=== PATIENT | female | born 1945 | race African-American/Black ===

== ENCOUNTER 2020-05-14 13:13 | Emergency (ER) | payer MEDICARE ==
--- NOTE | 2020-05-14 14:24 | RADIOLOGY REPORT (SQ) ---
EXAM DESCRIPTION: CHEST SINGLE VIEW IMAGES COMPLETED DATE/TIME: 05/14/2020 12:58 pm REASON FOR STUDY: bed 3 sepsis protocol COMPARISON: None. EXAM PARAMETERS: NUMBER OF VIEWS: One view. TECHNIQUE: Single frontal radiographic view of the chest acquired. RADIATION DOSE: NA LIMITATIONS: None. FINDINGS: LUNGS AND PLEURA: Patchy consolidation in the right mid to lower lung. Probable small mack ateral pleural effusions. MEDIASTINUM AND HILAR STRUCTURES: No masses. Contour normal. HEART AND VASCULAR STRUCTURES: Moderate cardiomegaly. Indistinctness of the pulmonary vasculature. BONES: No acute findings. HARDWARE: None in the chest. OTHER: No other significant finding. IMPRESSION: Focal consolidation right mid to lower lung suspicious for pneumonia. Moderate cardiome carmelita of with possible mild pulmonary edema. TECHNICAL DOCUMENTATION: JOB ID: [id number] [employer]- All Rights Reserved Reading location - IP/workstation name: [email or web address]
[2020-05-14 14:57] LABS: ABSOLUTE BASOPHILS # (AUTO) 0.1 10^3/uL (0.0-0.2); ABSOLUTE EOSINOPHILS # (AUTO) 0.2 10^3/uL (0.0-0.6); ABSOLUTE LYMPHOCYTES (AUTO) 1.2 10^3/uL (0.5-4.7); ABSOLUTE MONOCYTES (AUTO) 1.1 10^3/uL (0.1-1.4); ABSOLUTE NEUT (AUTO) 11.4 10^3/uL (1.7-8.2); BASOPHILS % (AUTO) 0.7 % (0-2); EOSINOPHILS % (AUTO) 1.5 % (0-6); HEMATOCRIT 41.8 % (36.0-47.0); HEMOGLOBIN 13.7 g/dL (12.0-15.5); LYMPHOCYTES % (AUTO) 8.3 % (13-45); MEAN CORPUSCULAR HEMOGLOBIN 28.9 pg (27.0-33.4); MEAN CORPUSCULAR HGB CONC 32.8 g/dL (32.0-36.0); MEAN CORPUSCULAR VOLUME 88 fl (80-97); MONOCYTES % (AUTO) 7.7 % (3-13); RED BLOOD COUNT 4.75 10^6/uL (3.72-5.28); RED CELL DISTRIBUTION WIDTH 15.6 % (11.5-14.0); SEGMENTED NEUTROPHILS % (AUTO) 81.8 % (42-78); TOTAL CELLS COUNTED % (AUTO) 100 %
[2020-05-14 15:02] LABS: INTERNATIONAL RATION (INR) 1.18; PROTHROMBIN TIME 15.2 SEC (11.4-15.4)
[2020-05-14 15:03] LABS: VENOUS BLOOD BASE EXCESS -0.4 mmol/L; VENOUS BLOOD HCO3 23.5 mmol/L (20-32); VENOUS BLOOD PCO2 36.5 mmHg (35-63); VENOUS BLOOD PH 7.43 (7.30-7.42)
[2020-05-14 15:08] LABS: ALBUMIN 3.1 g/dL (3.5-5.0); ALKALINE PHOSPHATASE 106 U/L (38-126); ANION GAP 5 (5-19); ASPARTATE AMINO TRANSFERASE 25 U/L (14-36); BILIRUBIN,DIRECT 0.4 mg/dL (0.0-0.4); BILIRUBIN,TOTAL 0.8 mg/dL (0.2-1.3); BLOOD UREA NITROGEN 21 mg/dL (7-20); CALCIUM 8.7 mg/dL (8.4-10.2); CARBON DIOXIDE 26 mmol/L (22-30); CHLORIDE 102 mmol/L (98-107); GLUCOSE 327 mg/dL (75-110); POTASSIUM 4.6 mmol/L (3.6-5.0); TOTAL PROTEIN 5.8 g/dL (6.3-8.2)
[2020-05-14 15:13] LABS: PLATELET COUNT 85 10^3/uL (150-450)
[2020-05-14 15:24] LABS: TROPONIN I 0.063 ng/mL
[2020-05-14] MEDS ORDERED: FUROSEMIDE INJ/PF 40 MG/4 ML SDV IV ONE (15:46)
[2020-05-14] MEDS ORDERED: INSULIN REG, HUMAN 100 UNIT/ML 3 ML VIAL (PYX) IV ONE ×2 (15:47→16:06)
[2020-05-14] MEDS ORDERED: ASPIRIN 81 MG TABLET, CHEWABLE PO ONE (15:48)
[2020-05-14 16:26] VITALS: BP 146/96
--- NOTE | 2020-05-14 19:33 | ER Document Report ---
Entered by JOSE C ARIAS SCRIBE 05/14/20 1406 Acting as scribe for:VIKAS KIMBROUGH MD ED General - General Stated Complaint: SHORTNESS OF BREATH Primary Care Provider: FLAKITO SAEED [NO LOCAL MD] - Follow up as needed Mode of Arrival: Medic Information source: Patient Notes: This 75 year old female patient with a history of hypertension, CHF, CAD s/p stent placement presents to the ED today via EMS with complaints of worsening shortness of breath that started last night. Per EMS, she had room air O2 sats of 95%. Patient states that when EMS arrived they told her that her BGL was 495. She denies history of diabetes. Denies any chest pain, blurred/double vision, nausea, vomiting, or diarrhea. Patient notes that she tested positive for COVID x2 weeks ago. - Related Data Allergies/Adverse Reactions: Unable to Assess Allergy (Unverified 05/14/20 14:11) Past Medical History - General Information source: Patient - Social History Smoking Status: Never Smoker Cigarette use (# per day): No Chew tobacco use (# tins/day): No Smoking Education Provided: No Frequency of alcohol use: None Drug Abuse: None Family History: Reviewed & Not Pertinent - Past Medical History Cardiac Medical History: Reports: Hx Congestive Heart Failure, Hx Coronary Ar josh Disease, Hx Hypertension Pulmonary Medical History: Reports: Hx COPD Past Surgical History: Reports: Hx Coronary Stent, Hx Kidney (Renal Surgery) - 1 kidney removed Review of Systems - Review of Systems Constitutional: See HPI, Recent illness EENT: See HPI. denies: Blurred vision, Double vision Cardiovascular: See HPI. denies: Chest pain Respiratory: See HPI, Short of breath Gastrointestinal: See HPI. denies: Diarrhea, Nausea, Vomiting Genitourinary: No symptoms reported Female Genitourinary: No symptoms reported Musculoskeletal: No symptoms reported Skin: No symptoms reported Hematologic/Lymphatic: No symptoms reported Neurological/Psychological: No symptoms reported -: Yes All other systems reviewed and negative Physical Exam - Vital signs Vitals: Pulse Ox 93 05/14/20 13:17 - General General appearance: Alert In distress: None - HEENT Head: Normocephalic, Atraumatic Eyes: Normal Extraocular movements intact: Yes Pupils: PERRL Neck: Normal, Supple - Respiratory Respiratory status: Other - 94% O2 saturation on 2L via nasal cannula Chest status: Nontender Breath sounds: Decreased air movement - Diminished breath sounds in the bases Chest palpation: Normal - Cardiovascular Rhythm: Regular, Tachycardia Heart sounds: Normal auscultation Murmur: No - Abdominal Inspection: Morbidly Obese Distension: No distension Bowel sounds: Normal Tenderness: Nontender - Abdomen soft Organomegaly: No organomegaly - Back Back: Normal, Nontender - Extremities General upper extremity: Normal inspection General lower extremity: Edema - Edema to lower extremities bilaterally - Neurological Neuro grossly intact: Yes Orientation: AAOx4 [place] Coma Scale Eye Opening: Spontaneous [place] Coma Scale Verbal: Oriented [place] Coma Scale Motor: Obeys Commands [place] Coma Scale Total: 15 - Psychological Associated symptoms: Normal affect, Normal mood - Skin Skin Temperature: Warm Skin Moisture: Dry Skin Color: Normal Course - Re-evaluation Re-evalutation: 05/15/20 10:29 This is an addendum note to complete the chart from yesterday patient decided to leave AGAINST MEDICAL ADVICE. Patient insisted that she was not going to be admitted to the hospital for her congestive heart failure elevated glucose of gr eater than 300 on arrival. Patient states she has a doctor in in [place] and was planning to call her doctor in the next day. Patient had discussions with myself, nursing staff, and nurse manager knowledge in the emergency department yesterday and she is competent to make this decision and understands the risk of as well as not doing well and deteriorating in her health if she were to leave. Patient was insistent that she was going to go home and take her medications and call her doctor tomorrow patient was given IV insulin 3 units Humulin R for her blood sugar at that time just prior to discharge of 293. 05/15/20 10:46 Patient stated she refused his all medications that we had planned for her and decided that the only medicine she retake was insulin because her sugar had increased which was a new problem to her and said that was the only thing that she would allow us to give prior to her discharge. - Vital Signs Vital signs: Temp Pulse Resp BP Pulse Ox 97.8 F 24 H 146/96 H 94 05/14/20 14:24 05/14/20 16:01 05/14/20 16:01 05/14/20 16:01 05/15/20 10:31 Vital signs show systolic diastolic hypertension 146/96 and a pulse ox of 94 with a respiratory rate of 24. Patient was afebrile - Laboratory Results Result Diagrams: 05/14/20 14:19 05/14/20 14:19 Laboratory Results Interpreted: 05/14/20 05/14/20 05/14/20 13:26 14:19 14:19 WBC 14.0 H RDW 15.6 H Plt Count 85 L Lymph % (Auto) 8.3 L Absolute Neuts (auto) 11.4 H Seg Neutrophils % 81.8 H VBG pH Sodium 132.6 L BUN 21 H Glucose 327 H POC Glucose 345 H NT-Pro-B Natriuret Pep Total Protein 5.8 L Albumin 3.1 L 05/14/20 05/14/20 05/14/20 14:19 14:19 15:59 WBC RDW Plt Count Lymph % (Auto) Absolute Neuts (auto) Seg Neutrophils % VBG pH 7.43 H Sodium BUN Glucose POC Glucose 293 H NT-Pro-B Natriuret Pep 2030 H Total Protein Albumin 05/15/20 10:32 Leukocytosis of 14,000 blood sugar of 345 BNP was 2030. Patient is in congestive heart failure with a elevated white blood cell count consistent with either inflammation stress or infection. Critical Laboratory Results Reviewed: No Critical Results - Radiology Results Radiology Results Interpreted: 05/15/20 10:33 Chest X-Ray 05/14/20 13:19 IMPRESSION: Focal consolidation right mid to lower lung suspicious for pneumonia. Moderate cardiomegaly of with possible mild pulmonary edema. Chest x-ray shows moderate cardiomegaly and pulmonary edema suspicious pneumonia on the right mid lung due to some focal consolidation. Critical Radiology Results Reviewed: No Critical Results Attending or Supervising Physician who Reviewed Radiology: VIKAS KIMBROUGH - EKG Interpretation by Me Additional EKG results interpreted by me: 05/15/20 10:39 Twelve-lead EKG on May 14 2020 shows atrial fibrillation with a variable ventricular rate between 91 and 138. Normal axis left ventricular hypertrophy noted with secondary repull changes TX interval is variable QRS intervals within normal range borderline QT interval prolongation no evidence for STEMI. Discharge - Discharge Clinical Impression: Chronic atrial fibrillation with rapid ventricular response, Pneumonia involving right lung, Congestive heart failure, Leukocytosis, Hyperglycemia Condition: Serious Disposition: AGAINST MEDICAL ADVICE Referrals: LOCALMD,NO [NO LOCAL MD] - Follow up as needed I personally performed the services described in the documentation, reviewed and edited the documentation which was dictated to the scribe in my presence, and it accurately records my words and actions.
--- NOTE | 2020-05-14 22:26 | EKG REPORT ---
SEVERITY:- ABNORMAL ECG - ATRIAL FIBRILLATION, V-RATE 91-138 LVH WITH SECONDARY REPOLARIZATION ABNORMALITY BORDERLINE PROLONGED QT INTERVAL : Confirmed by: Jean Purvis MD 14-May-2020 22:25:52
--- OUTSIDE RECORDS SUMMARY | 2020-05-17 10:26 | XMS REPORT ---
:1945 [facility] [address] [place] [address] Care Team Providers Name Role Phone Famarid YAZMIN Attending Clinician Unavailable Amanda BENDER Attending Clinician Unavailable Tung BENDER Attending Clinician Unavailable Allergies, Adverse Reactions, Alerts Allergy Allergy Type Status Severity Reaction(s) Onset Inactive Treat ing Comments Name Date Date Clinician BACTRIM Drug allergy Active 06-10 00:00: 00 ZELNORM Drug allergy Active 06-10 00:00: 00 CODEINE Drug allergy Active 06-10 00:00: 00 ADHESIVE Miscellaneous Active TAPE allergy 06-10 00:00: 00 Latex, Allergy to Active Natural substance Rubber Medications Ordered Filled Start Stop Current Ordering Indication Dosage Frequency Signature Comments Components Medication Medication Date Date Medication? Clinician (SIG) Name Name Afluria Qd No Afluria Qd (36 mos (36 mos up)(PF)60 up)(PF)60 mcg (15 mcg mcg (15 x4)/0.5 mL mcg IM syringe x4)/0.5 mL Inject by IM syringe intramuscul Inject by ar route. intramuscu lar route. amlodipine No 1 Q1D amlodipine 10 mg 10 mg tablet Take tablet 1 tablet Take 1 every day tablet by oral every day route. by oral route. atorvastati No 1 Q1D atorvastat n 40 mg in 40 mg tablet Take tablet 1 tablet Take 1 every day tablet by oral every day route. by oral route. betamethaso No betamethas ne one dipropionat dipropiona e 0.05 % te 0.05 % topical topical ointment ointment APPLY A APPLY A THIN LAYER THIN LAYER TO THE TO THE AFFECTED AFFECTED AREA(S) BY AREA(S) BY TOPICAL TOPICAL ROUTE ONCE ROUTE ONCE DAILY DAILY Eliquis 5 No 1 BID Eliquis 5 mg tablet mg tablet Take 1 Take 1 tablet tablet twice a day twice a by oral day by route. oral route. esomeprazol No 1capsul Q1D esomeprazo e magnesium e(s) le 40 mg magnesium capsule,del 40 mg ayed capsule,de release layed TAKE 1 release CAPSULE BY TAKE 1 MOUTH DAILY CAPSULE BY MOUTH DAILY furosemide No 1 Q1D furosemide 20 mg 20 mg tablet Take tablet 1 tablet Take 1 every day tablet by oral every day route. by oral route. gabapentin No 1capsul TID gabapentin 100 mg e(s) 100 mg capsule capsule Take 1 Take 1 capsule 3 capsule 3 times a day times a by oral day by route. oral route. metoprolol No 1 BID metoprolol tartrate 25 tartrate mg tablet 1 25 mg (one) tablet 1 Tablet by (one) mouth two Tablet by times daily mouth two times daily tramadol 50 No 1 Q6H tramadol mg tablet 50 mg take 1 tablet (one) take 1 Tablet by (one) mouth four Tablet by times mouth four daily, as times needed daily, as needed Ventolin No 2puff(s Q4H Ventolin HFA 90 ) HFA 90 mcg/actuati mcg/actuat on aerosol ion inhaler aerosol Inhale 2 inhaler puffs every Inhale 2 4 hours by puffs inhalation every 4 route. hours by inhalation route. celecoxib No celecoxib 100 mg 100 mg capsule capsule TAKE 1 TAKE 1 CAPSULE BY CAPSULE BY MOUTH TWICE MOUTH DAILY TWICE DAILY DOK 100 mg No DOK 100 mg capsule capsule TAKE 1 TAKE 1 CAPSULE BY CAPSULE BY MOUTH TWICE MOUTH DAILY TWICE NEEDED DAILY NEEDED furosemide No furosemide 40 mg 40 mg tablet TAKE tablet ONE TABLET TAKE ONE BY MOUTH TABLET BY EVERY DAY MOUTH FOR 5 DAYS EVERY DAY FOR 5 DAYS Gavilyte-C No Gavilyte-C 240 240 gram-22.72 gram-22.72 gram-6.72 gram-6.72 gram-5.84 gram-5.84 gram oral gram oral solution as solution directed as directed Milk of No Milk of Magnesia Magnesia 400 mg/5 mL 400 mg/5 oral mL oral suspension suspension Take 30 mL Take 30 mL by mouth by mouth daily as daily as needed for needed for Constipatio Constipati n. Shake on. Shake well. well. neomycin No neomycin 500 mg 500 mg tablet Take tablet 2 tablets Take 2 at 2 pm and tablets at 7 pm the 2 pm and 7 day before pm the day surgery. before surgery. ondansetron No ondansetro 4 mg n 4 mg disintegrat disintegra ing tablet ting Take 1 Tab tablet by mouth Take 1 Tab every 6 by mouth hours as every 6 needed for hours as Nausea. needed for Nausea. Pain Relief No Pain (acetaminop Relief hen) 500 mg (acetamino tablet TAKE phen) 500 TWO TABLETS mg tablet BY MOUTH TAKE TWO EVERY 8 TABLETS BY HOURS MOUTH EVERY 8 HOURS Pulmicort No Pulmicort Flexhaler Flexhaler 180 180 mcg/actuati mcg/actuat on breath ion breath activated activated inhale one inhale one PUFF TWICE PUFF TWICE DAILY DAILY Shingrix No Shingrix (PF) 50 (PF) 50 mcg/0.5 mL mcg/0.5 mL intramuscul intramuscu ar lar suspension, suspension kit SHOT , kit SHOT Problems Condition Condition Condition Status Onset Resolution Last Treatin g Comments Name Details Category Date Date Treatment Clinician Date Osteoarthri Osteoarthri Problem Active 2019-04 tis of tis of 04-24 right knee Right Knee 00:00: joint Joint 00 Osteoarthri Osteoarthri Problem Active 2019-04 tis of left tis of Left 04-24 knee joint Knee Joint 00:00: 00 Hypercholes Hypercholes Problem Active 2019-04 terolemia terolemia 04-24 00:00: 00 Morbid Morbid Problem Active 2019-04 obesity Obesity 04-24 00:00: 00 Hypertensiv Hypertensiv Problem Active 2019-04 e disorder e Disorder 04-24 00:00: 00 Heart Heart Problem Active 2019-04 disease Disease 04-24 00:00: 00 Bilateral Bilateral Problem Active 2019-04 knee pain Knee Pain 04-23 00:00: 00 Procedures Procedure Date / Time Performed Performing Clinician Devic e RADIOLOGIC EXAM, KNEE; COMPLETE, 4 2020-02-23 00:00:00 OR MORE VIEWS Auto OV Level 2019-05-15 00:00:00 Auto OV Level 2019-04-17 00:00:00 Auto OV Level 2019-04-07 00:00:00 Auto OV Level 2019 00:00:00 New Patient 2019 00:00:00 Auto OV Level 2019-03-17 00:00:00 Auto OV Level 2019-01-30 00:00:00 Auto OV Level 2018-09-18 00:00:00 Auto OV Level 2018-07-01 00:00:00 Auto OV Level 2018-06-12 00:00:00 Procedure on Stomach Results Test Description Test Time Test Comments Text Results Atomic Results Result Comments SARS-CoV-2 N gene XXX Ql CHANDU+probe 2020-04-23 00:00:00 Test Item Value Reference Range Comments SARS-CoV-2 N gene XXX Ql CHANDU+probe Detected [place] [facility] Case ID: (test code = 15278-4) [id number] blood in urine (hemoglobin) by [id number] 13:43:00 Test Item Value Reference Range Comments blood in urine (hemoglobin) by dipstick (test code = Trace BLOOD UR DIP) ketones, urine, by test [id number] 13:43:00 Test Item Value Reference Range Comments ketones, urine, by test strip (test code = 5797-6) Trace urobilinogen, urine, semiquantitative (dipstick)2019 13:43:00 Test Item Value Reference Range Comments urobilinogen, urine, semiquantitative (dipstick) (test 0.2 code = 5818-0) protein, urine, semiquantitative (dipstick)2019 13:43:00 Test Item Value Reference Range Comments protein, urine, semiquantitative (dipstick) (test Negative code = 2887-8) bilirubin, [id number] 13:43:00 Test Item Value Reference Range Comments bilirubin, urine (test code = 5770-3) Negative nitrites, [id number] 13:43:00 Test Item Value Reference Range Comments nitrites, dipstick (test code = NITRITES DIP) Negative glucose, urine, [id number] 13:43:00 Test Item Value Reference Range Comments glucose, urine, semiquantitative (test code = Negative 5792-7) pH, urine, [id number] 13:43:00 Test Item Value Reference Range Comments pH, urine, semiquantitative (test code = 5803-2) 5.5 specificgravity, [id number] 13:43:00 Test Item Value Reference Range Comments specificgravity, dipstick (test code = SPGR UR DIP) 1.030 oxygen saturation, [id number] 13:43:00 Test Item Value Reference Range Comments oxygen saturation, oximetry (test code = 84037) 98 % leukocyte esterase, urine, by [id number] 13:43:00 Test Item Value Reference Range Comments leukocyte esterase, urine, by dipstick (test code = trace 5799-2) CBC with Auto [id number] 11:45:00 Test Item Value Reference Range Comments nucleated red blood cells as percent of 0.00 % 0.00-0.2 0 blood leukocytes (test code = 772-4) platelet count (test code = 777-3) 202.00 THOUS/UL /mm3 140.00-4 40.00 basophil count, blood (test code = 0.05 10*3/mm3 0.01-0.08 705-4) lymphocytes as percent of blood 24.20 % 19.30-51.70 leukocytes (test code = 736-9) erythrocyte (RBC) count (test code = 5.02 10*6/mm3 3.93-5.22 789-8) mean corpuscular volume, RBC (test code 88.00 fL 79.40-94 .80 = 787-2) neutrophils as percent of blood 66.30 % 34.00-71.00 leukocytes (test code = 770-8) hemoglobin, blood (test code = 718-7) 14.50 g/dL 11.20-15.7 0 basophils as percent of blood 0.40 % 0.10-1.20 leukocytes, automated count (test code = 706-2) monocytes as percent of blood 7.60 % 4.70-12.50 leukocytes (test code = 5905-5) mean corpuscular hemoglobin, RBC (test 28.90 pg 25.60-32. 20 code = 785-6) eosinophils as percent of blood 1.20 % 0.70-5.80 leukocytes (test code = 713-8) mean platelet volume (test code = 11.40 fL 9.40-12.30 776-5) leukocyte count, blood (test code = 11.97 10*3/mm3 3.98-10.04 804-5) monocyte count, blood, automated (test 0.91 10*3/uL 0.24-0.36 code = 742-7) mean corpuscular hemoglobin 32.80 G/DL % 32.20-35.50 concentration, RBC (test code = 786-4) red blood cell distribution width (test 14.70 % 11.70-14 .40 code = 788-0) hematocrit, blood (test code = 4544-3) 44.20 % 34.10-44. 90 lymphocyte count, blood, automated 2.90 10*3/mm3 1.18-3.74 (test code = 731-0) neutrophil count, blood (test code = 7.93 10*3/mm3 1.56-6.13 752-6) eosinophil count, blood (test code = 0.14 THOUS/UL /mm3 0.04-0.3 6 712-0) Basic [id number] 11:45:00 Test Item Value Reference Range Comments potassium, serum (test 4.50 mmol/L 3.40-5.10 code = 2823-3) sodium, serum (test code 143.00 mmol/L 136.00-145.00 = 2951-2) urea nitrogen, blood 24.00 mg/dL 9.00-23.00 (test code = 3094-0) carbon dioxide, venous 28.00 mmol/L 20.00-31.00 blood (test code = 2020-4) chloride, serum (test 107.00 mmol/L 98.00-107.00 code = 2075-0) Estimated Glomerular 74.46 mL/min/1.73m2 See lab report for Filtration Rate (calc) associate d comment(s) (test code = EGFR) creatinine, serum (test 0.94 mg/dL 0.55-1.02 code = 2160-0) calcium, serum (test code 10.30 mg/dL 8.70-10.40 See la b report for = 1999-11) associated comme nt(s) blood glucose (test code 102.00 mg/dL 60.00-99.00 = 6777-7) [id number] 11:45:00 Test Item Value Reference Range Comments international normalized ratio (INR) (test code = 1.03 2.00-3.00 5895-7) MRSA [id number] 11:45:00 Test Item Value Reference Range Comments Culture, Methicillin Resistant TNP S ee lab report for associated Staphylococcus aureus (test code = comment(s) CULT MRSA) oxygen saturation, [id number] 10:27:00 Test Item Value Reference Range Comments oxygen saturation, oximetry (test code = 26009) 97% % Assessments Condition Name Status Diagnosis Date Treating Clinici an Bilateral knee pain Active 2020-03-09 08:39:57 Osteoarthritis of knee Active 2020-03-09 08:43:19 Morbid obesity Active 2020-03-09 08:43:15 Osteoarthritis of left knee joint Active 2020-02-23 15: 10:04 Bilateral knee pain Active 2020-02-23 14:35:55 Osteoarthritis of right knee joint Active 2020-02-23 15 :10:17 Morbid obesity Active 2020-02-23 15:13:03 Chronic kidney disease Active 2020-02-23 15:13:42 Pre-procedural laboratory examination Active Pre-procedural laboratory examination Active Pre-procedural laboratory examination Active Pre-procedural laboratory examination Active Pre-procedural laboratory examination Active Pre-procedural laboratory examination Active Pre-procedural laboratory examination Active Pre-procedural laboratory examination Active Pre-procedural laboratory examination Active Pre-procedural laboratory examination Active Pre-procedural laboratory examination Active Pre-procedural laboratory examination Active Diverticulosis of colon (without Active mention of hemorrhage) Intestinovesical fistula Active Diverticulosis of colon (without Active mention of hemorrhage) Intestinovesical fistula Active Diverticulosis of colon (without Active mention of hemorrhage) Intestinovesical fistula Active Diverticulosis of colon (without Active mention of hemorrhage) Intestinovesical fistula Active Diverticulosis of colon (without Active mention of hemorrhage) Intestinovesical fistula Active Diverticulosis of colon (without Active mention of hemorrhage) Intestinovesical fistula Active Diverticulosis of colon (without Active mention of hemorrhage) Intestinovesical fistula Active Diverticulosis of colon (without Active mention of hemorrhage) Intestinovesical fistula Active Diverticulosis of colon (without Active mention of hemorrhage) Intestinovesical fistula Active Diverticulosis of colon (without Active mention of hemorrhage) Intestinovesical fistula Active Diverticulosis of colon (without Active mention of hemorrhage) Intestinovesical fistula Active Diverticulosis of colon (without Active mention of hemorrhage) Intestinovesical fistula Active Diverticulosis of colon (without Active mention of hemorrhage) Intestinovesical fistula Active Diverticulosis of colon (without Active mention of hemorrhage) Intestinovesical fistula Active Diverticulosis of colon (without Active mention of hemorrhage) Intestinovesical fistula Active Diverticulosis of colon (without Active mention of hemorrhage) Intestinovesical fistula Active Diverticulosis of colon (without Active mention of hemorrhage) Intestinovesical fistula Active Diverticulosis of colon (without Active mention of hemorrhage) Intestinovesical fistula Active Unspecified essential hypertension Active Other and unspecified hyperlipidemia Active Esophageal reflux Active Atrial fibrillation Active Other acquired absence of organ Active Acquired absence of kidney Active 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 Unspecified essential hypertension Active Other and unspecified hyperlipidemia Active Esophageal reflux Active Atrial fibrillation Active Other acquired absence of organ Active Acquired absence of kidney Active 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 Unspecified essential hypertension Active Other and unspecified hyperlipidemia Active Esophageal reflux Active Atrial fibrillation Active Other acquired absence of organ Active Acquired absence of kidney Active 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 Unspecified essential hypertension Active Other and unspecified hyperlipidemia Active Esophageal reflux Active Atrial fibrillation Active Other acquired absence of organ Active Acquired absence of kidney Active 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 Unspecified essential hypertension Active Other and unspecified hyperlipidemia Active Esophageal reflux Active Atrial fibrillation Active Other acquired absence of organ Active Acquired absence of kidney Active 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 Unspecified essential hypertension Active Other and unspecified hyperlipidemia Active Esophageal reflux Active Atrial fibrillation Active Other acquired absence of organ Active Acquired absence of kidney Active 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 Unspecified essential hypertension Active Other and unspecified hyperlipidemia Active Esophageal reflux Active Atrial fibrillation Active Other acquired absence of organ Active Acquired absence of kidney Active 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 Unspecified essential hypertension Active Other and unspecified hyperlipidemia Active Esophageal reflux Active Atrial fibrillation Active Other acquired absence of organ Active Acquired absence of kidney Active 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 Unspecified essential hypertension Active Other and unspecified hyperlipidemia Active Esophageal reflux Active Atrial fibrillation Active Other acquired absence of organ Active Acquired absence of kidney Active 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 Unspecified essential hypertension Active Other and unspecified hyperlipidemia Active Esophageal reflux Active Atrial fibrillation Active Other acquired absence of organ Active Acquired absence of kidney Active 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 Unspecified essential hypertension Active Other and unspecified hyperlipidemia Active Esophageal reflux Active Atrial fibrillation Active Other acquired absence of organ Active Acquired absence of kidney Active 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 Unspecified essential hypertension Active Other and unspecified hyperlipidemia Active Esophageal reflux Active Atrial fibrillation Active Other acquired absence of organ Active Acquired absence of kidney Active 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 Unspecified essential hypertension Active Other and unspecified hyperlipidemia Active Esophageal reflux Active Atrial fibrillation Active Other acquired absence of organ Active Acquired absence of kidney Active 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 Unspecified essential hypertension Active Other and unspecified hyperlipidemia Active Esophageal reflux Active Atrial fibrillation Active Other acquired absence of organ Active Acquired absence of kidney Active 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 Unspecified essential hypertension Active Other and unspecified hyperlipidemia Active Esophageal reflux Active Atrial fibrillation Active Other acquired absence of organ Active Acquired absence of kidney Active 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 Unspecified essential hypertension Active Other and unspecified hyperlipidemia Active Esophageal reflux Active Atrial fibrillation Active Other acquired absence of organ Active Acquired absence of kidney Active 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 Unspecified essential hypertension Active Other and unspecified hyperlipidemia Active Esophageal reflux Active Atrial fibrillation Active Other acquired absence of organ Active Acquired absence of kidney Active 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 Unspecified essential hypertension Active Other and unspecified hyperlipidemia Active Esophageal reflux Active Atrial fibrillation Active Other acquired absence of organ Active Acquired absence of kidney Active 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 Unspecified essential hypertension Active Other and unspecified hyperlipidemia Active Esophageal reflux Active Atrial fibrillation Active Other acquired absence of organ Active Acquired absence of kidney Active 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 Unspecified essential hypertension Active Other and unspecified hyperlipidemia Active Esophageal reflux Active Atrial fibrillation Active Other acquired absence of organ Active Acquired absence of kidney Active 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 Unspecified essential hypertension Active Other and unspecified hyperlipidemia Active Esophageal reflux Active Atrial fibrillation Active Other acquired absence of organ Active Acquired absence of kidney Active 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 Unspecified essential hypertension Active Other and unspecified hyperlipidemia Active Esophageal reflux Active Atrial fibrillation Active Other acquired absence of organ Active Acquired absence of kidney Active 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 Unspecified essential hypertension Active Other and unspecified hyperlipidemia Active Esophageal reflux Active Atrial fibrillation Active Other acquired absence of organ Active Acquired absence of kidney Active 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 2020-02-23 2020-02-23 Babak Horn [id number] 00:00:00 00:00:00 [facility] [address], DO: [facility] [address] [facility], [address], [place] [address], Ph. 2019-05-15 2019-05-15 Outpatient [facility] 6 [id number] 00:00:00 00:00:00 Roseanna Hurtado - [id number] Surgery 2019-04-17 2019-04-17 Outpatient [facility] 2 [id number] 00:00:00 00:00:00 Roseanna Hurtado - [id number] Surgery 2019-04-07 2019-04-07 Outpatient [facility] 5 [id number] 00:00:00 00:00:00 Roseanna Hurtado - [id number] Surgery 2019 2019 Outpatient Amanda BENDER, [facility] 9 [id number] 00:00:00 00:00:00 Colt Hurtado - [id number] Urology 2019-03-17 2019-03-17 Outpatient [facility] 9 [id number] 00:00:00 00:00:00 Roseanna Hurtado - 22115 Surgery 2019-01-30 2019-01-30 Outpatient Brillant [facility] 188 [id number] 00:00:00 00:00:00 Abdi BENDER - [id number] Surgery 2018-09-18 2018-09-18 Outpatient [facility] 187 [id number] 00:00:00 00:00:00 Abdi BENDER - [id number] Surgery 2018-07-01 2018-07-01 Outpatient [facility] 3 [id number] 00:00:00 00:00:00 Roseanna Hurtado - [id number] Surgery 2018-06-12 2018-06-12 Outpatient [facility] 186 [id number] 00:00:00 00:00:00 Abdi BENDER - [id number] Surgery Immunizations Ordered Immunization Filled Immunization Date Status Commen ts Refusal Reason Name Name influenza, 2020-01-21 Completed injectable, 00:00:00 quadrivalent Social History Smoking Status Start Date Stop Date Unknown If Ever Smoked Vital Signs Vital Name Observation Time Observation Value Comments Height 2020-03-10 00:00:00 64 [in_i] BMI (Body Mass Index) 2020-03-10 00:00:00 51.2 kg/m2 Body Weight 2020-03-10 00:00:00 298 [lb_av] Height 2020-02-23 00:00:00 64 [in_i] BMI (Body Mass Index) 2020-02-23 00:00:00 51.2 kg/m2 Body Weight 2020-02-23 00:00:00 298 [lb_av] Hospital Discharge Instructions 1. Osteoarthritis of left knee joint 2. Bilateral knee pain XR, knee, 4 or more view 3. Osteoarthritis of right knee joint 4. Morbid obesity 5. Chronic kidney disease Discussion Note: None recorded. Patient educational handouts: No information available.
== END 2020-05-14 16:24 | disposition left against medical advice (07) ==
LOC: ER 13:13
DX: J44.0 Chronic obstructive pulmonary disease with (acute) lower respiratory infection (principal); J18.9 Pneumonia, unspecified organism; I11.0 Hypertensive heart disease with heart failure; I50.9 Heart failure, unspecified; R73.9 Hyperglycemia, unspecified; I48.20 Chronic atrial fibrillation, unspecified; I25.10 Atherosclerotic heart disease of native coronary artery without angina pectoris; Z95.5 Presence of coronary angioplasty implant and graft; R06.02 Shortness of breath; Z90.5 Acquired absence of kidney; Z53.29 Procedure and treatment not carried out because of patient's decision for other reasons
CPT/HCPCS: 93005; 99285; 96374; 36415; 87040; 82962; 83605; 85025; 85610; 80053; 84484; 82803; 83880; 71045; 93010; A9270; J1815